=== PATIENT | male | born 1940 ===

== ENCOUNTER 2016-10-21 10:07 | Emergency (ER) | payer MEDICARE, BC ==
[2016-10-21 10:23] VITALS: TEMP 97.8
[2016-10-21 10:26] VITALS: O2SAT 97
--- NOTE | 2016-10-21 10:59 | ED PDOC ---
Arrival/HPI - General Historian: Patient - General Chief Complaint: Abnormal Skin Integrity Time Seen by Provider: 10/21/16 10:24 - History of Present Illness Narrative History of Present Illness (Text): 10/21/16 10:56 76yo male who present with complaint of generalized body itchy body rash. States he usually gets same rash whenever he travel to the [facility] during [place] winter to avoid the cold weather. He came back 4days ago and when the weather became warm, he started having same rash. States he took a tab of OTC Benadryl this morning. States he was told to avoid egg and meat but he eat both things. Denies SOB, chest pain, drooling, any other inciting factors. (Monika Kay A) Past Medical History - Provider Review Nursing Documentation Reviewed: Yes - Infectious Disease Hx of Infectious Diseases: None - Cardiac Hx Hypertension: Yes - Genitourinary/Gynecological Hx Prostate Problems: Yes - Psychiatric Hx Substance Use: No - Surgical History Hx Cholecystectomy: Yes Family/Social History - Physician Review Nursing Documentation Reviewed: Yes Family/Social History: Unknown Family HX Smoking Status: Former Smoker Hx Alcohol Use: No Hx Substance Use: No Allergies/Home Meds Allergies/Adverse Reactions: Allergies No Known Allergies Allergy (Verified 10/21/16 10:23) Review of Systems - Physician Review All systems were reviewed & negative as marked: Yes - Review of Systems Constitutional: Normal Eyes: Normal ENT: Normal Respiratory: Normal Cardiovascular: Normal Gastrointestinal: Normal Genitourinary Male: Normal Musculoskeletal: Normal Skin: Rash, Pruritis Neurological: Normal Endocrine: Normal Hemo/Lymphatic: Normal Psychiatric: Normal Physical Exam Vital Signs Reviewed: Yes Temperature: Afebrile Blood Pressure: Normal Pulse: Regular Respiratory Rate: Normal Appearance: Positive for: Well-Appearing, Non-Toxic, Comfortable Pain Distress: None Mental Status: Positive for: Alert and Oriented X 3 - Systems Exam Head: Present: Atraumatic, Normocephalic Pupils: Present: PERRL Extroacular Muscles: Present: EOMI Conjunctiva: Present: Normal Mouth: Present: Moist Mucous Membranes Neck: Present: Normal Range of Motion Respiratory/Chest: Present: Clear to Auscultation, Good Air Exchange. No: Respiratory Distress, Accessory Muscle Use Cardiovascular: Present: Regular Rate and Rhythm, Normal S1, S2. No: Murmurs Abdomen: Present: Normal Bowel Sounds. No: Tenderness, Distention, Peritoneal Signs Back: Present: Normal Inspection Upper Extremity: Present: Normal Inspection. No: Cyanosis, Edema Lower Extremity: Present: Normal Inspection. No: Edema Neurological: Present: GCS=15, CN II-XII Intact, Speech Normal Skin: Present: Warm, Dry, Rashes (Hive noted to b/l arms and trunk), Normal Color Psychiatric: Present: Alert, Oriented x 3, Normal Insight, Normal Concentration Vital Signs Temp Pulse Resp BP Pulse Ox 10/21/16 11:37 59 L 98 H 134/80 10/21/16 11:00 63 18 138/84 97 10/21/16 10:26 97.8 F 64 18 140/87 97 10/21/16 10:18 97.8 F 64 18 140/87 99 Medical Decision Making ED Course and Treatment: I was available for consultation during PA evaluation. The chart was reviewed by me, and I agree with disposition. The documented history was done by the physician director equipment. The documented physical exam was done by the physician director equipment. The documented procedures were done by the physician director equipment. (Nate Harkins) 10/21/16 19:28 Pt in ED for hives. He was not in any distress. No stridor. No drooling noted. He was treated with pepcid and Prednisone. On r evaluation his hives improved. He was DC home with same medication. Referred to a [employer]boarding Teacher/[facility]. TRT ED for any new or worsening symptoms. (Monika Kay) - Medication Orders Current Medication Orders: Discontinued Medications Famotidine (Pepcid) 20 mg PO STAT STA Stop: 10/21/16 10:50 Last Admin: 10/21/16 10:57 Dose: 20 MG Prednisone (Prednisone Tab) 40 mg PO STAT STA Stop: 10/21/16 10:50 Last Admin: 10/21/16 10:57 Dose: 40 MG Disposition/Present on Arrival - Present on Arrival Any Indicators Present on Arrival: No History of DVT/PE: No History of Uncontrolled Diabetes: No Urinary Catheter: No History of Decub. Ulcer: No History Surgical Site Infection Following: None - Disposition Have Diagnosis and Disposition been Completed?: Yes Disposition Time: 11:05 Patient Plan: Discharge - Disposition Diagnosis: Allergic reaction Disposition: HOME/ ROUTINE Condition: STABLE Discharge Instructions (ExitCare): Urticaria (ED) Additional Instructions: Follow up with [facility] Return to ED for any new or worsening symptoms Prescriptions: Famotidine [Pepcid] 20 mg PO DAILY #10 tab predniSONE [Prednisone] 10 mg PO BID #4 tab Referrals: Mai Caruso MD [Primary Care Provider] - Follow up with primary David Castro MD [Staff Provider] - Follow up with primary
[2016-10-21 11:38] VITALS: BP 134/80; PULSE 59; RESP 98
== END 2016-10-21 11:40 | disposition home or self-care (01) ==
LOC: ED 10:07
DX: T78.40XA Allergy, unspecified, initial encounter (principal); X58.XXXA Exposure to other specified factors, initial encounter